=== PATIENT | female | born 1940 | race Caucasian/White ===

== ENCOUNTER 2022-12-21 11:04 | Emergency (ER) | payer OTHER ==
[~2022-12-21] VITALS: Ht 165.1 cm; Wt 77.1 kg
[2022-12-21 11:05] VITALS: BP_SYST 182
--- NOTE | 2022-12-21 11:05 | NUR ---
BROUGHT BACK TO BED #6 AND TRIAGED. REPORT GIVEN TO HUMA
--- NOTE | 2022-12-21 11:10 | NUR ---
PT RECEIVED, CARE ASSUMED. PT LAYINGING IN BED WITH C/O KIRSTEN KNEE PAIN AND SWELLING. NOTED: ABRASION TO RIGHT KNEE. +CSM KIRSTEN AREAS. DR. WOOTEN AT BEDSIDE.
[2022-12-21] MEDS ORDERED: ACET-2634 PO (14:08)
[2022-12-21] MEDS ORDERED: NAPR-688 PO (14:08)
[2022-12-21 14:41] VITALS: BP_SYST 130
--- NOTE | 2022-12-21 14:45 | NUR ---
Patient given written and verbal discharge instructions and verbalizes understanding. ER MD discussed with patient the results and treatment provided. Patient in stable condition. ID arm band removed. Patient educated on pain management and to follow up with PMD. Pain Scale [5]. Opportunity for questions provided and answered. Medication side effect fact sheet provided.
== END 2022-12-21 14:45 | disposition home or self-care (01) ==
LOC: SED 11:04
DX: S80.11XA Contusion of right lower leg, initial encounter (principal); M25.462 Effusion, left knee; M25.461 Effusion, right knee; E78.5 Hyperlipidemia, unspecified; Z88.0 Allergy status to penicillin; Z79.899 Other long term (current) drug therapy; W19.XXXA Unspecified fall, initial encounter; Y93.89 Activity, other specified; Y92.89 Other specified places as the place of occurrence of the external cause; Y99.8 Other external cause status
CPT/HCPCS: 73590-TC; 93971; 99284